=== PATIENT | male | born 1995 | race African-American/Black ===

== ENCOUNTER 2018-12-12 15:05 | Emergency (ER) | payer OTHER ==
[~2018-12-12] VITALS: Ht 172.7 cm; Wt 81.3 kg
[2018-12-12 15:53] VITALS: Ht 172.7 cm; Wt 81.3 kg
[2018-12-12 17:35] VITALS: BP 114/68
== END 2018-12-12 17:35 | disposition home or self-care (01) ==
LOC: ED 15:05
DX: T45.0X5A Adverse effect of antiallergic and antiemetic drugs, initial encounter (principal); Y92.89 Other specified places as the place of occurrence of the external cause; X58.XXXA Exposure to other specified factors, initial encounter